=== PATIENT | female | born 1940 | race Caucasian/White ===

== ENCOUNTER 2020-09-19 21:59 | Inpatient (IN) | payer OTHER, SELFPAY ==
[~2020-09-19] VITALS: Ht 165.1 cm; Wt 94.8 kg
[~2020-09-19 21:59] MED LIST: ACET-1182 PO; ALLO100T21 PO; AMIO200T10 GT; APIX2.5 GT; ASCO-672 GT; HEPA500056 IM; LACT10SO11 PO; METO25TA GT; URSO300C14 PO; VITA1TAB44 PO; VITD1000 GT; ZINC220C28 GT
--- NOTE | 2020-09-19 22:07 | NUR ---
PT KAROL ALS. TAKEN TO BED 9
[2020-09-19 22:19] VITALS: BP 111/65
[2020-09-19] MEDS ORDERED: NACL 0.9% 2,500 ML IV ONE (22:20)
--- NOTE | 2020-09-19 22:40 | NUR ---
EKG PERFORMED AT BEDSIDE. EKG READS SINUS RHYTHM @ 71
[2020-09-19 22:51] LABS: BASOPHILS # (AUTO) 0.1 K/uL (0.00-0.22); BASOPHILS % (AUTO) 0.4 % (0.0-2.0); EOSINOPHILS # (AUTO) 0.1 K/uL (0-0.4); EOSINOPHILS % (AUTO) 1.2 % (0.0-4.0); HEMATOCRIT 29.2 % (36-48); HEMOGLOBIN 9.4 g/dL (12.0-16.0); LYMPHOCYTES # (AUTO) 1.4 K/uL (2.5-16.5); LYMPHOCYTES % (AUTO) 11.8 % (20.5-51.1); MEAN CORPUSCULAR HEMOGLOBIN 33 pg (27-31); MEAN CORPUSCULAR HGB CONC 32 g/dL (33-37); MEAN CORPUSCULAR VOLUME 100.6 fL (80-94); MONOCYTES # (AUTO) 1.5 K/uL (0.8-1.0); MONOCYTES % (AUTO) 12.7 % (1.7-9.3); NEUTROPHILS # (AUTO) 8.6 K/uL (1.8-7.7); NEUTROPHILS % (AUTO) 73.9 % (42.2-75.2); PLATELET COUNT (AUTO) 293 K/uL (140-450); RED CELL DISTRIBUTION WIDTH 17.6 % (11.6-13.7); WHITE BLOOD COUNT (AUTO) 11.7 K/uL (4.8-10.8)
[2020-09-19 23:12] LABS: ALBUMIN 1.8 g/dL (3.4-5.0); ANION GAP 2.4 (8-16); ASPARTATE AMINOTRANSFERASE 24 U/L (15-37); CARBON DIOXIDE 36.9 mmol/L (21-32); CHLORIDE 102 mmol/L (98-107); CREATININE 1.6 mg/dL (0.6-1.3); GLUCOSE 108 mg/dL (74-106); POTASSIUM 4.3 mmol/L (3.5-5.1); SODIUM SERUM 137 mmol/L (136-145); TOTAL BILIRUBIN 0.2 mg/dL (0.0-1.0); UREA NITROGEN, BLOOD 58 mg/dL (7-18)
[2020-09-19] MEDS ORDERED: VANCOMYCIN 1,000 MG in DEXTROSE 5% 250 ML IV ONE (23:40)
[2020-09-19] MEDS ORDERED: MEROPENEM 1,000 MG in NACL 0.9% 100 ML IV ONE (23:40)
--- NOTE | 2020-09-19 23:48 | NUR ---
80 YO F BIBA C/O ALOC. PT APPEARS OBTUNDED; GCS 3, GRUNTING RESPONSE TO PAINFUL STIMULI. PT ON 5 L MASK, AUDIBLE COARSE CRACKLES NOTED. ABD ROUND LARGE, ACTIVE BS. SALDIVAR CATH IN PLACE YELLOW URINE NOTED. SKIN NON INTACT. GURNEY LOCKED IN LOWEST POSITION WILL CONTINUE TO OBSERVE. HX: KELI, COVID, ENCEPHALAPATHY, PNA, PAF, DYSPHAGIA AX: ZMAX CIPRO
--- NOTE | 2020-09-19 23:55 | NUR ---
PT TAKEN TO CT VIA RAYMUNDO
--- NOTE | 2020-09-20 00:08 | NUR ---
PT RETURN FROM CT
[2020-09-20] MEDS ORDERED: VANCOMYCIN 1,000 MG VIAL ONE (00:19)
[2020-09-20] MEDS ORDERED: MEROPENEM 1,000 MG VIAL IV ONE (00:19)
[2020-09-20 01:36] LABS: APPEARANCE,URINE CLOUDY (CLEAR); BILIRUBIN,URINE NEGATIVE (NEGATIVE); BLOOD, URINE 3+ (NEGATIVE); COLOR,URINE YELLOW (YELLOW); LEUKOCYTE ESTERASE ,URINE 3+ (NEGATIVE); NITRITE, URINE POSITIVE (NEGATIVE); UGLUCOSE NEGATIVE (NEGATIVE)
[2020-09-20 01:46] LABS: RBC,URINE 0-5 /HPF (0-5); WBC,URINE TOO MANY TO COUNT /HPF (0-5)
--- NOTE | 2020-09-20 02:00 | NUR ---
DR JAVIER @ BEDSIDE; SUPRAPUBIC CATHETER CHANGED SUCESSFULLY. NO ACUTE DISTRESS NOTED.
[2020-09-20] MEDS ORDERED: hydrALAZINE 20 MG/ML VIAL IVP ONE (03:10)
[2020-09-20] MEDS ORDERED: MAG SULF 2000 MG/WATER PREMIX 50 ML IV PRN (03:30)
[2020-09-20] MEDS ORDERED: ACETAMINOPHEN 325 MG TAB PO PRN (03:30)
[2020-09-20] MEDS ORDERED: POTASSIUM CHLORIDE 10 MEQ TABER PO PRN (03:30)
[2020-09-20] MEDS ORDERED: HYDROcodone/APAP 5/325 MG 1 TAB TAB PO PRN (03:30)
[2020-09-20] MEDS ORDERED: KCL 20 MEQ/WATER INJ PREMIX 200 ML IV PRN (03:30)
[2020-09-20] MEDS ORDERED: ONDANSETRON 4 MG/2 ML VIAL IVP PRN (03:30)
[2020-09-20] MEDS ORDERED: MORPHINE SULFATE 4 MG/ML SYR IVP PRN (03:30)
--- NOTE | 2020-09-20 04:59 | NUR ---
Patient will be admitted to care of DR. JOHN. Admited to [facility] 107 B. Belongings list completed. Report to PAUL RICH.
[2020-09-20 05:05] VITALS: BP 140/85
--- NOTE | 2020-09-20 05:05 | NUR ---
RECEIVED PT LETHARGIC FROM ER / GURNEY , TRANSFER TO BED BY MANUAL LIFT , NON VERBAL , W/ MILD LABORED RESP - O2 SAT WNL , W/ O2 AT 5LPM/ SIMPLE MASK , ON TELE MONITOR - SR , IV SITES INTACT AND PATENT . LOW RONY SCALE - W/ OPEN WOUND ON SACRAL AREAS . ADMISSION ASSESSMENT - DONE . MRSA SPECIMEN TO BE SENT TO LAB . W/ G TUBE - CLAMPED , W/ SUPRAPUBUIC URINE CATH DRAINING W/ CLEAR YELLOW URINE W/ SEDIMENTS . SAFETY MEASURTES IN PLACE - BED ALARM ON , POC DISCUSSED BUT POOR UNDERSTANDING DUE TO MENTAL STATUS . WILL CONT. TO MONITOR .
[2020-09-20] MEDS: NACL 0.9% 1,000 ML IV SCH ×3 (05:15→23:21)
[2020-09-20] MEDS ORDERED: cefTRIAXone 1,000 MG VIAL ONE (05:52)
--- NOTE | 2020-09-20 06:00 | NUR ---
MADE ROUNDS , NO S/X OF ACUTE DISTRESS NOTED - O2 SAT WNL . ON TELE MONITOR .
--- NOTE | 2020-09-20 07:25 | NUR ---
ENDORSED - PT - STABLE . I SUGGESTING TO NURSE SALTY PUT PT ON NPO DUE TO MENTAL STATUS . I GAVE TO SALTY THE COPY OF FEEDING RECORD FROM [facility] - I TOLD HER TO REFER THIS TO DR JOHN IF THE AGREE W/ THAT , SHE MAY INITIATE G TUBE FEEDING PER ORDER .
[2020-09-20 08:00] VITALS: BP 108/36
--- NOTE | 2020-09-20 08:32 | NUR ---
REC'D REPORT FROM [employer] DOWEL DRAWING OPERATOR NURSE, PT LETHARGIC, ON 5L SIMPLE MASK SATURATION OF 100%, STABLE NO SIGN OF DISTRESS
--- NOTE | 2020-09-20 09:19 | NUR ---
FNS CONSULT RECEIVED FOR WOUNDS/PRESSURE INJURIES. PATIENT HAS BEEN SCREENED AND CATEGORIZED HIGH NUTRITION RISK. PATIENT WILL BE SEEN WITHIN 1-2 DAYS OF ADMISSION. 09/20/20-09/21/[address]
--- NOTE | 2020-09-20 11:09 | NUR ---
DC [age] YRS OLD FEMALE PATIENT WAS ADMITTED FROM [facility] WITH A DX OF ENCEPHALOPATHY /UTI. PT HAS A HX OF ADRENAL TUMOR ,UTI AND COVID POSITIVE. CT HEAD SHOWED NO ACUTE INTRACRANIAL HEMHORRAGE , CT ABD/PELVIS SHOWED BILATERAL MULTILOBAR PATCHY AREAS OF AIRSPACE CONSOLIDATION. O2 5L/ MASK SATING 98% . ADMINISTERED ROCEPHIN IV ABX AND CONTINUED HOME MEDS. CONSULTED WITH BUSINESS INTELLIGENCE DIRECTOR. DC PLAN TO GO BACK TO [facility] WHEN STABLE. CM TO FOLLOW CALLED [facility] SPOKE WITH AISSATOU COLLINS NOTIFIED HIM PT STATUS AND UPDATED CLINICALS. Addendum: 09/21/20 at 7765 by Salma Hamm CM KARINA REYEZ OF [facility] UPDATED OF THE PATIENT'S CONDITION. HE STATED HE WILL CHANGE THE LEVEL OF CARE TO ICU AND PROVIDED ME WITH VERBAL AUTH [id number].
--- NOTE | 2020-09-20 11:10 | NUR ---
WOUND CARE EVALUATION NOTE: SKIN ASSESSMENT DONE WITH ANGELO PT WHO HAS HX OF PRESSURE INJURY AND PT. ADMITTED WITH ELEVATED WBC AND LOW ALBUMIN LEVEL. SKIN DRY WITH POOR TURGAR, ALL EXTREMITIES +1 EDEMA, COLD TO TOUCH, SKIN INTACT. POC DISCUSSED WITH PRIMARY RN. -ORAL MUCOSA THIN LAYER OF DEBRIT, NO OPEN SORE -GT MARICEL-STOMA SKIN INTACT -ABDOMINAL WALL OLD HEALED SCARS -PRESSURE ULCER INJURY STAGE 4, SACROCOCCYX 1X3X0.3CM, WOUND BED 100% GRANULATING TISSUE, MOIST, NO ODOR, MARICEL-WOUND SKIN RED NON-BLANCHABLE SKIN EXTENDED TO RIGHT AND LEFT BUTTOCKS - PRESSURE ULCER INJURY STAGE 2, LEFT BUTTOCK 2X2X0.1CM, WOUND BED ARE RED 100% GRANULATING TISSUE, MOIST NO ODOR, MARICEL WOUND SKIN NON- BLANCHABLE SKIN MERGE WITH SACRALCOCCYX WOUND EDGE - PRESSURE ULCER INJURY STAGE 2, RIGHT BUTTOCK 1X2X0.1CM, WOUND BED ARE RED 100% GRANULATING TISSUE, MOIST NO ODOR, MARICEL WOUND SKIN NON- BLANCHABLE SKIN MERGE WITH SACRALCOCCYX WOUND EDGE -RIGHT AND LEFT HEELS BLANCHABLE REDNESS, SKIN INTACT. RECOMMENDATIONS -APPLY HYDRAGUADR TO DRY SKIN BID AND PRN IF SOILING -ORAL CARE BID -GT SITE CARE PER PROTOCOL -CLEANSE SACRALCOCCYX AND BUTTOCKS WITH NS, PAT DRY, APPLY THERAHONEY DRESSING SHEET AND COVER WITH ABD PAD, SECURED WITH TAPE QD AND PRN IF SOILING. NO FOAM DRESSING. -TURN AND REPOSITION PATIENT Q 2H -ASSESS AND MONITOR SKIN CONDITION DURING POSITION CHANGE -OFFLOAD BILATERAL HEELS BY PLACING PILLOWS UNDER CALVES AT ALL TIMES, UNLESS OTHERWISE CONTRAINDICATED -PRESSURE REDISTRIBUTION BY PLACING PILLOWS AND OFFLOADING HIPS AND SACRALCOCCYX -KEEP SKIN CLEAN AND DRY AT ALL TIMES.
--- NOTE | 2020-09-20 11:37 | NUR ---
SOCIAL WORK NOTE: Patient's Orientation Unable To Assess Information Provided By LIZBET Gusman [facility] [place] Comments ANJELICA WAS UNABLE TO MEET PATIENT AT BEDSIDE. SW CONTACTED EMERGENCY CONTACT AND LEFT VM. ANJELICA COMPLETED ASSESSMENT WITH [facility] STAFF. Client Analyst, Realtionship and Phone Number LOGAN WEISS [phone] Healthcare Power of Fur Comber No Does Patient Have a POLST No Identifying Problems No Social Work Triggers Is A Social Work Consult Needed No Mandate Report Filed No Explanation Of Identifying Problems PATIENT IS AN 80-YEAR-OLD FEMALE ADMITTED FOR ENCEPHALOPATHY. PATIENT HAS PMHX OF COVID. [facility] - [phone] Pre-Admission Level Of Functioning Status Assist With ADL Level Of Functioning Comment PER STAFF, PATIENT REQUIRES ASSISTANCE WITH ADLS. Prior Resources/Services Used In Last 12 Months [facility] Prior Resources/Service Comments LIZBET STATED THAT PATIENT IS NURSING HOME BUT IS NOT ON A BED HOLD. Prior DME No Prior DME Used Dialysis Comments N/A Patient Had Caregiver No Home Support No Caregiver Issues Financial Issues No Known Financial Issue Factors/Needs No D/C Needs Identified Pt/Rep Participated In Discharge Plan Yes Patient/Family Agress With Discharge Plan Yes Discharge Plan Comments TENTATIVE DISCHARGE PLAN IS FOR PATIENT TO RETURN TO [facility]. DC Plan Status Initiated
--- NOTE | 2020-09-20 11:45 | NUR ---
APPLIED NON WOVEN DRAIN SPONGE TO PT'S GTUBE STOMA, CLEANED WITH NS PRIOR TO APPLICATION. CLEANSED SUPRAPUBIC AREA WITH NS, HAD DRY SKIN FLAKING OFF. PT TOLERATED PROCEDURE WELL.
[2020-09-20 12:00] VITALS: BP 86/43
--- NOTE | 2020-09-20 13:03 | NUR ---
SENT DR. JOHN MESSAGE INFORMING HIM OF B/P 74/38.
[2020-09-20] MEDS ORDERED: NACL 0.9% 500 ML IV SCH (14:00)
[2020-09-20 16:00] VITALS: BP 97/43
[2020-09-20] MEDS: THERAHONEY WOUND DRESSING TP SCH (16:00)
--- NOTE | 2020-09-20 16:38 | NUR ---
09/20/20 RD INITIAL ASSESSMENT COMPLETED PLEASE REFER TO NUTRITION ASSESSMENT UNDER CARE ACTIVITY FOR ESTIMATED NUTRITIONAL NEEDS. 1. CONTINUE GLUCERNA 1.2 @ 60 ML/HR -THIS WILL PROVIDE 1728 KCAL AND 80 GM OF PROTEIN. 2. FREE WATER FLUSH 200 ML 3. RECOMMEND VITAMIN C [address] TO FOLLOW-UP 2-3 DAYS, HIGH RISK MIKO CRAIG, RD
[2020-09-20] MEDS: PIPERACILLIN/TAZOBACTAM 2.25 GM in DEXTROSE 5% 50 ML IV SCH (17:52)
[2020-09-20] MEDS ORDERED: PIPERACILLIN/TAZOBACTAM 3.375 GM in DEXTROSE 5% 50 ML IV SCH (18:00)
--- NOTE | 2020-09-20 19:10 | NUR ---
ENDORSED PT TO TAPE RECORDER MECHANIC NURSE FOR CONTINUITY OF CARE, PT STABLE.
--- NOTE | 2020-09-20 19:30 | NUR ---
RECEIVING CARE FROM AM NURSE FOR CONTINUING OF CARE. PATIENT IS BED BOUND. A/A/O X1. ON TELE MONITOR. O2 SAT 100% WITH 8L BY MASK. RESPIRATORY EVEN AND UNLABORED. G-TUBE FEEDING TOLERATING WELL. IV FLUID INFUSING ON LEFT FOREARM WITH 20G. RIGHT FOREARM 18G WITH SALINE LOCK. SKIN WARM, NON-DIAPHORETIC, STAGE 4 SACRAL WOUND WITH DRESSING IN PLACE. SALDIVAR CATHETER DRAINAGE. BED IN LOWEST POSITION. SIDE RAIL UP X2. FREQUENT ROUND. PLAN OF CARE DISCUSSED. CALL LIGHT WITHIN REACH. WILL CONTINUE TO MONITOR.
[2020-09-20 20:00] VITALS: BP 93/41
--- NOTE | 2020-09-20 20:30 | NUR ---
GT FEEDING RESIDUAL 60 ML. WILL CONTINUE TO MONITOR.
[2020-09-20] MEDS: AMIODARONE 200 MG TAB GT SCH (21:00)
[2020-09-20] MEDS: METOPROLOL 25 MG TAB GT SCH (21:00)
--- NOTE | 2020-09-20 22:50 | NUR ---
PT O2 SAT 86%. WITH SOME CRACKLES. SUCTIONED MOUTH , VERY SCANTY SECRETIONS OBTAINED. O2 SAT UP TO 90% ONLY BUT DESATURATE AGAIN TO 86%. RT CAME AND SUCTIONED THROUGH THE NOSE, ALSO VERY SCANTY SECRETIONS OBTAINED. SIMPLE MASK CHANGED TO 15L NRM. O2 SAT NOW UP TO 98%. WILL CONTINUE TO MONITOR.
--- NOTE | 2020-09-20 23:30 | NUR ---
MADE ROUNDS. O2 SAT 98%. NO RESPIRATORY DISTRESS NOTED. WILL CONTINUE TO MONITOR.
[2020-09-21] VITALS (29 sets, daily range): BP systolic 69–136; BP diastolic 31–91
[2020-09-21] MEDS: PIPERACILLIN/TAZOBACTAM 2.25 GM in DEXTROSE 5% 50 ML IV SCH ×4 (00:41→17:10)
[2020-09-21] MEDS: THERAHONEY WOUND DRESSING TP SCH ×2 (01:00→12:57)
--- NOTE | 2020-09-21 01:47 | NUR ---
TELE MONITOR FLAT LINE. CHECKED ON PT WITH RT ALSO AT BEDSIDE. UNRESPONSIVE , NO BREATHING ,NO PULSE. MANUEL CASANOVA CALLED@[phone]. RT STARTED COMPRESSION WHEN MANUEL CASANOVA TEAM CAME.
--- NOTE | 2020-09-21 01:55 | NUR ---
CALLED [facility] AND MADE AWARE ABOUT THE CHANGE OF CONDITION OF PT. DR. MAMIE BRADLEY MD ,TALKED TO AND AGREED TO INTUBATE PT.
--- NOTE | 2020-09-21 02:07 | NUR ---
CALLED DR. GARCIA AND MADE HIM AWARE ABOUT THE CHANGE ON PT CONDITION.
--- NOTE | 2020-09-21 03:00 | NUR ---
RECEIVED REPORT FROM [facility] RN DURING TRANSFER OF CARE TO ICU. PATIENT ARRIVED POST CARDIAC ARREST TO ICU, WAS NOTIFIED BY TRANSFERRING RN THAT CODE STATUS HAD CHANGED FROM DNI TO FULL CODE. PATIENT ARRIVED TO ICU ETT TO VENT, INTUBATED, HOB 30 DEGREES, VENT SETTINGS AT AC/PV FIO2 100%, RR 20, PEEP 5. PATIENT HAS A PEG TUBE INSERTED LEFT UPPER ABDOMEN AND RIGHT NARE NG TUBE INTACT, SECURED AND IN PLACE. PATIENT ON CONTINUOUS TELE MONITORING AT HR 88 BPM. IV ACCESS SITES INCLUDE LEFT AC 20G PERIPHERAL IV AND RIGHT AC 18G PERIPHERAL IV. NO DRIPS CURRENTLY RUNNING ON ARRIVAL. PATIENT WEIGHT ESTIMATED AT 94.8 KG. PATIENT HAS A SUPRAPUBIC CATH IN PLACE, INTACT AND PATENT CONNECTED TO DRAINAGE BAG. PATIENT HAS A STAGE 4 PRESSURE WOUND TO THE SACRUM. WOUND CARE COMPLETED ON ARRIVAL. PATIENT PLACED IN A POSITION OF COMFORT, OFFLOADED FROM PRESSURE POINTS WITH US OF PILLOWS AND FREQUENT REPOSITIONING. BED LOCKED AND LOWERED INTO A POSITION OF SAFETY WILL CONTINUE TO CLOSELY MONITOR AND FREQUENTLY ROUND THROUGHOUT SHIFT.
--- NOTE | 2020-09-21 03:00 | NUR ---
TRANSFERRED PT ON VENT TO ICU BED 5 ACCOMPANIED BY RT. REPORT GIVEN AT BEDSIDE.
--- NOTE | 2020-09-21 03:12 | NUR ---
RADIOLOGY REPORT SHOWS ETT IS 1.5 CM ABOVE BLANCO, RECOMMENDATIONS TO RETRACT 1.5 CM. RT MADE AWARE, AT BEDSIDE WITH PRIMARY NURSE TO CARRY OUT, ANCHOR FAST SECURED.
--- NOTE | 2020-09-21 03:20 | NUR ---
CALLED/PAGED DR. AVENDAÑO ABOUT UPDATE OF STATUS IN PATIENT CONDITION. AWAITING CALL BACK FROM PHYSICIAN.
--- NOTE | 2020-09-21 03:25 | NUR ---
SPOKE WITH DR. AVENDAÑO, PHYSICIAN WAS UPDATED ON OVERALL PATIENT STATUS INCLUDING STATUS POST CARDIAC ARREST, VITALS, CURRENT THERAPIES IN PLACE AND CODE STATUS. PHYSICIAN GAVE VERBAL ORDER OF LEVOPHED CONCENTRATION OF 8 MG, VASOPRESSIN, AND VERSED. PHYSICIAN ALSO ORDERED CENTRAL LINE TO BE PLACED IN THE MORNING AND MORNING LABS OF TROPONIN, BNP AND CMP TO BE DRAWN SOON POSSIBLE. WILL CARRY OUT ORDERS.
[2020-09-21] MEDS: VASOPRESSIN 20 UNITS in NACL 0.9% 250 ML IV SCH ×3 (03:30→22:12)
[2020-09-21] MEDS: NOREPINEPHRINE 8 MG in DEXTROSE 5% 250 ML IV PRN ×4 (03:30→23:40)
--- NOTE | 2020-09-21 03:30 | NUR ---
DR. AVENDAÑO CONTACTED SECOND TIME FOR UPDATE ON CRITICAL ABG LEVELS. GAVE ORDERS TO ADJUST VENT SETTINGS. TV INCREASE TO 500 AND RR INCREASE TO 22. ORDERS GIVEN TO RT AT BEDSIDE IMMEDIATELY. WILL CONTINUE TO CLOSELY MONITOR AND FREQUENTLY ROUND.
--- NOTE | 2020-09-21 04:00 | NUR ---
VAP ORAL CARE, HYGIENE, WOUND CARE, REPOSITIONING, AND SUCTIONING PROVIDED. PATIENT BLOOD PRESSURE LOW, WILL CONTINUE TO TITRATE PRESSORS, CLOSELY MONITOR AND FREQUENTLY ROUND.
[2020-09-21] MEDS ORDERED: MIDAZOLAM MDV 50 MG in NACL 0.9% 40 ML IV PRN (04:05)
[2020-09-21] MEDS ORDERED: VASOPRESSIN 20 UNITS/ML VIAL ONE (04:15)
[2020-09-21] MEDS: NACL 0.9% 1,000 ML IV SCH ×2 (05:04→11:07)
[2020-09-21] MEDS ORDERED: Z-GUARD PASTE TP ONE (05:31)
[2020-09-21] MEDS ORDERED: PIPERACILLIN/TAZOBACTAM 2.25 GM VIAL IV ONE (05:32)
[2020-09-21] MEDS: HYDRAGUARD CREAM TP SCH ×2 (05:42→12:55)
--- NOTE | 2020-09-21 06:00 | NUR ---
PATIENT RESPONDING TO CURRENT THERAPIES AND VENT SETTINGS WELL. WILL CONTINUE TO CLOSELY MONITOR AND FREQUENTLY ROUND.
[2020-09-21 06:41] LABS: HEMATOCRIT 31.1 % (36-48); HEMOGLOBIN 9.7 g/dL (12.0-16.0); MEAN CORPUSCULAR HEMOGLOBIN 33 pg (27-31); MEAN CORPUSCULAR HGB CONC 31 g/dL (33-37); MEAN CORPUSCULAR VOLUME 104.7 fL (80-94); PLATELET COUNT (AUTO) 336 K/uL (140-450); RED BLOOD CELL COUNT(AUTO) 2.97 MIL/uL (4.20-5.40); RED CELL DISTRIBUTION WIDTH 17.5 % (11.6-13.7); WHITE BLOOD COUNT (AUTO) 19.8 K/uL (4.8-10.8)
--- NOTE | 2020-09-21 06:55 | NUR ---
RECEIVED CALL FROM [facility] (RADIOLOGY), STATED PER THE LATEST XRAY RESULTS, NEED TO RETRACT ET TUBE ANOTHER 1.5 CM. WILL ALERT RT OF NEW ORDERS AND CONTINUE TO CLOSELY MONITOR AND FREQUENTLY ROUND.
--- NOTE | 2020-09-21 07:00 | NUR ---
PATIENT CARE AND REPORT ENDORSED TO TENA RICH.
[2020-09-21] MEDS ORDERED: NOREPINEPHRINE 4 MG/4 ML VIAL IV ONE ×2 (07:29→23:32)
[2020-09-21 07:47] LABS: ALBUMIN 1.6 g/dL (3.4-5.0); ANION GAP 10.8 (8-16); ASPARTATE AMINOTRANSFERASE 54 U/L (15-37); CARBON DIOXIDE 26.9 mmol/L (21-32); CHLORIDE 105 mmol/L (98-107); CREATININE 1.8 mg/dL (0.6-1.3); GLUCOSE 81 mg/dL (74-106); MAGNESIUM 2.1 mg/dL (1.8-2.4); POTASSIUM 4.7 mmol/L (3.5-5.1); SODIUM SERUM 138 mmol/L (136-145); TOTAL BILIRUBIN 0.5 mg/dL (0.0-1.0); UREA NITROGEN, BLOOD 56 mg/dL (7-18)
--- NOTE | 2020-09-21 07:49 | NUR ---
RECEIVED REPORT FROM SHIELD OPERATOR RN. POC REVIEWED AND DISCUSSED. RASS -3. NON-RESPONSIVE TO VERBAL STIMULI. L FOREARM PERIPHERAL IV INTACT. PT ON CONTINUOUS GGT, VASOPRESSIN AND LEVOPHED. ON IVF AT 100 ML/HR. PT ON ETT TO VENT, AC 50 FIO2, TV 500, R 22. PEEP OF 5. O2 SAT AT 99%. NO SIGNS OF CYANOSIS. PT HAS GT AND NGT IN PLACE. F/C IN PLACE DRAINING CLEAR YELLOW URINE. PT IS AFEBRILE. SEND A MESSAGE TO DR. JOHN FOR CRITICAL LAB VALUE TROPONIN 0.089. AWAITING TO CALL BACK. WILL CONTINUE TO MONITOR.
--- NOTE | 2020-09-21 08:25 | NUR ---
DR. JOHN CALLED BACK. MADE AWARE PT'S ELEVATED TROPONIN. DR. Baltazar HAY CONSULTED. ID DR. JACQUES WAS ALSO CONSULTED.
--- NOTE | 2020-09-21 08:35 | NUR ---
LEAVE MESSAGE TO PICCLINE FOR PICCLINE ORDER
--- NOTE | 2020-09-21 08:57 | NUR ---
SEEN AND EXAMINED BY DR. JOHN. SPOKE WITH FAMILY PT'S CURRENT CONDITION.
[2020-09-21] MEDS ORDERED: allopurinoL 100 MG TAB PO SCH (09:00)
[2020-09-21] MEDS ORDERED: ASCORBIC ACID 500 MG/5 ML ORASYR GT SCH (09:00)
[2020-09-21] MEDS ORDERED: CHOLECALCIFEROL 1,000 IU TAB GT SCH (09:00)
--- NOTE | 2020-09-21 09:00 | NUR ---
PT PLACED DNR STATUS PER DR. JOHN ORDER.
[2020-09-21] MEDS: AMIODARONE 200 MG TAB GT SCH (09:17)
[2020-09-21] MEDS: METOPROLOL 25 MG TAB GT SCH (09:18)
--- NOTE | 2020-09-21 09:25 | NUR ---
RESPIRATORY THERAPIST DECREASED FIO2 SETTING TO 40% FROM VENT. OT SAT AT 99%.
[2020-09-21 10:52] LABS: LYMPHOCYTES % (MANUAL) 7 % (20-46); MONOCYTES % (MANUAL) 6 % (5-12)
[2020-09-21 10:53] LABS: EOSINOPHILS % (MANUAL) 1 % (0-4)
[2020-09-21] MEDS ORDERED: MIDAZOLAM MDV 100 MG in NACL 0.9% 80 ML IV PRN (11:05)
[2020-09-21] MEDS ORDERED: fentaNYL citrate 1 MG in NACL 0.9% 80 ML IV PRN (11:05)
[2020-09-21] MEDS ORDERED: ROCURONIUM 50 MG/5 ML VIAL IV ONE (12:00)
--- NOTE | 2020-09-21 12:07 | NUR ---
PAGED DR. ALBERTO ENERGY SALES CONSULTANT FOR DR. JOHN TO VERIFY CODE STATUS. PT BECAME UNRESPONSIVE TO VERBAL AND PAIN STIMULI. HR DROPPED TO 43 - 46 B/M. FAMILY NOTIFIED.
--- NOTE | 2020-09-21 13:20 | NUR ---
RECEIVED CALL FROM [facility]. PT IS POSITIVE FOR MRSA NARES. CONTACT PRECAUTION INITIATED.
--- NOTE | 2020-09-21 13:30 | NUR ---
FAMILY AT BEDSIDE. DNR CODE STATUS SIGNED BY SON.
[2020-09-21] MEDS ORDERED: MORPHINE SULFATE 50 MG in NACL 0.9% 45 ML IV PRN (14:35)
--- NOTE | 2020-09-21 17:58 | NUR ---
TALK TO HER SON ALISE [ [phone]] THAT WILL START MORPHINE IV DRIP FOR COMFORT CARE AND WILL GET IN TOUCH WITH HIM FOR CHANGE IN HER CONDITION.
[2020-09-21] MEDS: MORPHINE SULFATE 50 MG in NACL 0.9% 45 ML IV PRN ×2 (18:18→21:30)
--- NOTE | 2020-09-21 18:21 | NUR ---
MORPHINE GTT STARTED PER PROTOCOL. PT IS RESTING AND CALM. KEPT PT WARM AND COMFORTABLE.
--- NOTE | 2020-09-21 19:30 | NUR ---
ENDORSED PT TO STORY ANALYST RN. NO CHANGE OF CONDITION. POC REVIEWED AND DISCUSSED.
--- NOTE | 2020-09-21 19:35 | NUR ---
SPOKE WITH REGARDING TERMINAL EXTUBATION, PER COMFORT CARE ORDERS, PLACED PT ON CPAP 10, PEEP OF 5, FiO2 30%, WHEN RESPIARTIONS FALL BELOW RATE OF 16 WILL EXTUBATE PT. WILL CONTINUE TO MONITOR
[2020-09-21] MEDS ORDERED: VANCOMYCIN PER PHARMACY MC PRN (19:40)
[2020-09-21] MEDS ORDERED: ALBUMIN HUMAN 25% 100 ML IV SCH (21:00)
[2020-09-21] MEDS ORDERED: VANCOMYCIN 1GM/DEXT 5% PREMIX 200 ML IV SCH (21:20)
[2020-09-21] MEDS ORDERED: fentaNYL citrate 0.05 MG/ML VIAL ONE (22:19)
[2020-09-22] VITALS: BP 101/61
[2020-09-22 01:00] VITALS: BP 106/56
[2020-09-22] MEDS: MORPHINE SULFATE 50 MG in NACL 0.9% 45 ML IV PRN (01:04)
[2020-09-22 02:00] VITALS: BP 100/67
--- NOTE | 2020-09-22 02:10 | NUR ---
PTS RESPIRATORY RATE FELL BELOW 16, EXTUBATED PT WITH RN BEDSIDE. PT IS RESTING COMFORTABLY.
--- NOTE | 2020-09-22 03:08 | NUR ---
PATIENT WAS EXTUBATED AT 0210 AND SHE AT 0230 PEACEFULLY WITH NO SIGNS OF PAIN OR DISCOMFORT. [facility] WAS CALLED, I SPOKE WITH JEFF AND THE CASE NUMBER IS [id number]. CALL WAS PLACED TO THE PATIENT'S SON ALISE, HE HAS BEEN NOTIFIED & DOES NOT WANT AN AUTOPSY. CALL WAS PLACED TO THE [employer] AT 0247 AND I A STILL AWAITING THE CALL BACK AT THIS TIME BEFORE REMOVING ANY LINES FROM THE PATIENT.
--- NOTE | 2020-09-22 05:46 | NUR ---
0437 PATIENT DETERMINED NOT TO BE A SYSTEMS SPEC CASE BY [employer]. POSTMORTEM CARE HAS BEEN COMPLETED.
[2020-09-22] MEDS ORDERED: PANTOPRAZOLE 40 MG INJ VIAL IVP SCH (09:00)
== END 2020-09-22 02:30 | DRG 871 ==
LOC: MED 21:59 → MTU 09-20 04:04 → MIC 09-21 02:55
PROVIDERS: ADMIT Hospitalist; ATTEND Hospitalist
PROC: 0BH17EZ Insertion of Endotracheal Airway into Trachea, Via Natural or Artificial Opening (ICD-10-PCS; principal; 2020-09-21)
PROC: 5A1935Z Respiratory Ventilation, Less than 24 Consecutive Hours (ICD-10-PCS; 2020-09-21)
PROC: 5A12012 Performance of Cardiac Output, Single, Manual (ICD-10-PCS; 2020-09-21)
PROC: 02HV33Z Insertion of Infusion Device into Superior Vena Cava, Percutaneous Approach (ICD-10-PCS; 2020-09-21)
DX: A41.89 Other specified sepsis (principal); J18.9 Pneumonia, unspecified organism; G93.41 Metabolic encephalopathy; J96.01 Acute respiratory failure with hypoxia; E43 Unspecified severe protein-calorie malnutrition; N17.0 Acute kidney failure with tubular necrosis; R65.21 Severe sepsis with septic shock; I21.A1 Myocardial infarction type 2; N39.0 Urinary tract infection, site not specified; Z86.16 Personal history of COVID-19; Z20.822 Contact with and (suspected) exposure to COVID-19; I46.9 Cardiac arrest, cause unspecified; Z66 Do not resuscitate; D64.9 Anemia, unspecified; G31.89 Other specified degenerative diseases of nervous system; D32.0 Benign neoplasm of cerebral meninges; E88.09 Other disorders of plasma-protein metabolism, not elsewhere classified; E66.9 Obesity, unspecified; M10.9 Gout, unspecified; Z96.0 Presence of urogenital implants; F03.90 Unspecified dementia, unspecified severity, without behavioral disturbance, psychotic disturbance, mood disturbance, and anxiety; E55.9 Vitamin D deficiency, unspecified; K59.00 Constipation, unspecified; Z90.49 Acquired absence of other specified parts of digestive tract; Z88.1 Allergy status to other antibiotic agents; Z79.899 Other long term (current) drug therapy; Z79.01 Long term (current) use of anticoagulants; Z98.1 Arthrodesis status; Z93.1 Gastrostomy status
CPT/HCPCS: 31500; 36415; 36600; 70450; 71045; 71250; 80053; 81001; 82306; 82330; 82803; 83605; 83735; 83880; 84484; 85025; 87040; 87070; 87081; 87086; 87205; 93005; 94002; 94003; 96365; 96367; 99291; J0360; J0696; J1644; J2185; J2270; J2543; J3010; J3370; J3490; J7030; J7060